=== PATIENT | female | born 1960 | race Caucasian/White ===

== ENCOUNTER → 2016-12-15 | Outpatient (CLI) | payer BC ==
--- NOTE | 2016-12-15 11:37 | US ---
EXAMINATION TYPE: US carotid duplex BILAT DATE OF EXAM: 12/15/2016 9:27 AM COMPARISON: No previous CLINICAL HISTORY: 56-year-old female TIA, one episode of vision loss. TECHNIQUE: Duplex ultrasound evaluation of the carotid vessels. Indirect Doppler criteria was utilize d. FINDINGS: Grayscale images show mild intimal thickening seen at both bifurcations. EXAM MEASUREMENTS: RIGHT: Peak Systolic Velocity (PSV) cm/sec ----- Right CCA: 118.0 ----- Right ICA: 111.0 ----- Right ECA: 135.0 ICA/CCA ratio: 0.9 RIGHT: End Diastole cm/sec ----- Right CCA: 35.3 ----- Right ICA: 33.4 ----- Right ECA: 34.7 LEFT: Peak Systolic Velocity (PSV) cm/sec ----- Left CCA: 120.0 ----- Left ICA: 123.0 ----- Left ECA: 141.0 ICA/CCA ratio: 1.0 LEFT: End Diastole cm/sec ----- Left CCA: 32.1 ----- Left ICA: 47.4 ----- Left ECA: 35.0 VERTEBRALS (direction of flow): Right Vertebral: Antegrade Left Vertebral: Antegrade IMPRESSION: No hemodynamically significant stenosis appreciated in either internal carotid artery. Criteria for Assigning % of Stenosis / Diameter reduction (Estimation based on the indirect measurements of the internal carotid artery velocities (ICA PSV). 1. Normal (no stenosis)=ICA PSV < 125 cm/s: ratio < 2.0: ICA EDV<40 cm/s. 2. Less than 50% stenosis=ICA PSV < 125 cm/s: ratio < 2.0: ICA EDV<40 cm/s. 3. 50 to 69% stenosis=ICA PSV of 125 to 230 cm/s: ration 2.0 ? 4.0: ICA EDV 40-100 cm/s. 4. Greater than 70% stenosis to near occlusion= ICA PSV > 230 cm/s: ratio > 4.0: ICA EDV > 100 cm/s. 5. Near occlusion= ICA PSV velocities may be low or undetectable: variable ratio and ICA EDV. 6. Total occlusion=unable to detect flow.
== END | disposition home or self-care (01) ==
LOC: RADUSWWP 08:50
PROVIDERS: ATTEND Internal Medicine
DX: G45.9 Transient cerebral ischemic attack, unspecified (principal)
CPT/HCPCS: 93880

== ENCOUNTER → 2017-11-14 | Outpatient (CLI) | payer BC ==
--- NOTE | 2017-11-15 10:12 | MM ---
Reason for exam: screening (asymptomatic). Last mammogram was performed 2 years and 9 months ago. History: Family history of premenopausal breast cancer in paternal aunt at age 50. Physical Findings: A clinical breast exam by your physician is recommended on an annual basis and results should be correlated with mammographic findings. MG 3D Screening Mammo W/Cad Bilateral CC and MLO view(s) were taken. Prior study comparison: February 25, 2015, bilateral MG screening mammo w CAD. October 29, 2009, bilateral diagnostic digital mammog. The breast tissue is extremely dense which could obscure a lesion on mammography. Finding: There are typically benign round calcifications in both breasts. There is no discrete abnormality. ASSESSMENT: Benign, BI-RAD 2 RECOMMENDATION: Routine screening mammogram of both breasts in 1 year.
== END | disposition home or self-care (01) ==
LOC: RADMAMWWP 15:18
PROVIDERS: ATTEND Obstetrics & Gynecology
DX: Z12.31 Encounter for screening mammogram for malignant neoplasm of breast (principal)
CPT/HCPCS: 77063; G0202

== ENCOUNTER → 2017-11-23 | Outpatient (CLI) | payer BC ==
--- NOTE | 2017-11-23 09:41 | US ---
EXAMINATION TYPE: US duplex aorta DATE OF EXAM: 11/23/2017 COMPARISON: CT 2012 CLINICAL HISTORY: Z82.41 family hx sudden cardiac . Family history of sudden cardiac EXAM MEASUREMENTS: Abdominal Aorta: Proximal: 1.8 x 1.8cm Mid: 1.5 x 1.6cm Distal: 1.3 x 1.4cm Right Iliac: 0.7 x 0.8cm Left Iliac: 0.9 x 0.9cm Abdominal aorta and proximal iliac arteries appear wnl, no AAA seen at this time. IMPRESSION: 1. Screening ultrasound negative for abdominal aortic aneurysm.
== END ==
LOC: RADUSMAIN 07:49
PROVIDERS: ATTEND Family Medicine
DX: Z13.6 Encounter for screening for cardiovascular disorders (principal); Z82.49 Family history of ischemic heart disease and other diseases of the circulatory system
CPT/HCPCS: 93979

== ENCOUNTER → 2018-05-28 | Outpatient (CLI) | payer BC ==
--- NOTE | 2018-05-28 08:34 | US ---
EXAMINATION TYPE: US transvaginal DATE OF EXAM: 05/28/2018 COMPARISON: 02/25/2015 CLINICAL HISTORY: 57-year-old female R10.2 Pelvic Pain. Pt states pelvic pain, more on the right for many years, LMP: January TECHNIQUE: Transvaginal (TV). Date of LMP: January FINDINGS: EXAM MEASUREMENTS: Uterus: 8.6 x 5.8 x 6.8 cm Endometrial Stripe: 0.6 cm Right Ovary: 2.3 x 1.9 x 1.2 cm Left Ovary: 2.3 x 1.5 x 1.4 cm 1. Uterus: Retroverted Heterogeneous with multiple (up to 3) fibroids, largest= 5.3 x 5.3 x 5.2 cm. The largest fibroid is in the mid uterine fundus and obscures the fundal endometrium. 2. Endometrium: The visualized stripe along the body and lower uterine segment appears normal. 3. Right Ovary: wnl with follicular change 4. Left Ovary: wnl with follicular change 5. Bilateral Adnexa: wnl 6. Posterior cul-de-sac: wnl IMPRESSION: Retroverted, fibroid uterus, largest fibroid along the fundus obscuring the fundal endometrium and me asuring 5.3 cm. Largest fibroid in 2014 measured 5 cm. The endometrial stripe along the lower uterine segment and body measures 6 mm, within normal limits.
== END | disposition home or self-care (01) ==
LOC: RADUSWWP 06:54
PROVIDERS: ATTEND Obstetrics & Gynecology
DX: N85.4 Malposition of uterus (principal); D25.9 Leiomyoma of uterus, unspecified; D26.1 Other benign neoplasm of corpus uteri
CPT/HCPCS: 76830

== ENCOUNTER 2018-08-17 09:01 | Day surgery (SDC) | payer BC ==
[2018-08-16 08:41] VITALS: BMI 19.0
[2018-08-17 09:52] VITALS: RESP 16; TEMP 98.4
[2018-08-17] MEDS ORDERED: LIDOCAINE 1% 20 ML VIAL (10MG/ML) FOR IV START INTRADERMA ONE (09:54)
[2018-08-17] MEDS: LACTATED RINGERS 1,000 ML IV SCH ×2 (09:54→10:11)
[2018-08-17] MEDS ORDERED: PROPOFOL 10 MG/ML 20 ML VIAL IV ONE (10:12)
[2018-08-17] MEDS ORDERED: LIDOCAINE 1% INJ 10MG/ML (20 ML MDV) ONE (10:12)
--- NOTE | 2018-08-17 10:28 | P.PCN ---
Date of Procedure: 08/17/18 Procedure(s) Performed: BRIEF HISTORY: Patient is a 58-year-old pleasant female, scheduled for an elective colonoscopy as a part of screening for colorectal neoplasia. PROCEDURE PERFORMED: Colonoscopy. PREOPERATIVE DIAGNOSIS: Screening for colon cancer. IV sedation per Anesthesia. PROCEDURE: After informed consent was obtained, the patient, was brought into the endoscopy unit. IV sedation was administered by Anesthesia under continuous monitoring. Digital rectal examination was normal. Initially the Olympus CF- 160 flexible video colonoscope was then inserted in the rectum, gradually advanced into the cecum without any difficulty. Careful examination was performed as the scope was gradually being withdrawn. Ileocecal valve and the appendiceal orifice were visualized and appeared normal. Prep was excellent. Mucosa of the cecum, ascending colon, transverse colon, descending colon, sigmoid colon, and rectum appeared normal. Retroflexion was performed in the rectum and no lesions were seen. The patient tolerated the procedure well. IMPRESSION: Normal-appearing colon from rectum to cecum with no evidence of colorectal neoplasia. RECOMMENDATIONS: Findings of this examination were discussed with the patient as well as a family. She was advised to have a repeat screen colonoscopy..
[2018-08-17 10:51] VITALS: BP 117/78; PULSE 66
== END 2018-08-17 11:32 | disposition home or self-care (01) ==
LOC: ORWHC2ENDO 09:01
PROVIDERS: ATTEND Internal Medicine Gastroenterology
DX: Z12.11 Encounter for screening for malignant neoplasm of colon (principal); I10 Essential (primary) hypertension; Z88.0 Allergy status to penicillin; Z79.82 Long term (current) use of aspirin; Z79.899 Other long term (current) drug therapy
CPT/HCPCS: 81025; 45378; J2001; J2704

== ENCOUNTER → 2018-10-25 | Outpatient (CLI) | payer BC ==
--- NOTE | 2018-10-25 10:50 | US ---
EXAMINATION TYPE: US duplex aorta DATE OF EXAM: 10/25/2018 COMPARISON: Doppler duplex ultrasound November 23, 2017 CLINICAL HISTORY: R10.31 RT LOWER QUADRANT PAIN. Pt concerns and jesusita with marker on rt groin area , scanned area bowel loops seen. EXAM MEASUREMENTS: Abdominal Aorta: Proximal: 1.8x1.6 cm Mid: 1.2x1.1 cm Distal: 0.9x0.7 cm CHERIE: 0.7x0.7 cm BRENDAN: 0.6x 0.7 cm Last few images scanning of right groin or pelvis show portions of bowel and bladder without suspicio us mass or fluid collection. IMPRESSION: No ultrasound evidence for AAA. No significant change from prior.
== END | disposition home or self-care (01) ==
LOC: RADUSWWP 06:48
PROVIDERS: ATTEND Physician Assistant
DX: R10.31 Right lower quadrant pain (principal); Z13.6 Encounter for screening for cardiovascular disorders
CPT/HCPCS: 93979

== ENCOUNTER → 2019-03-14 | Outpatient (CLI) | payer BC ==
--- NOTE | 2019-03-14 16:27 | US ---
EXAMINATION TYPE: US venous doppler duplex LE RT DATE OF EXAM: 03/14/2019 4:18 PM COMPARISON: none CLINICAL HISTORY: M79.604 Pain in Right Leg. Right calf pressure x 2 days SIDE PERFORMED: Right TECHNIQUE: The lower extremity deep venous system is examined utilizing real time linear array sonog mann with graded compression, doppler sonography and color-flow sonography. VESSELS IMAGED: Common Femoral Vein Deep Femoral Vein Greater Saphenous Vein * Femoral Vein Popliteal Vein Small Saphenous Vein * Proximal Calf Veins (* superficial vessels) Grayscale, color doppler, spectral doppler imaging performed of the deep veins of the right lower ext remity. There is normal flow, compressibility, vascular waveforms. Right Leg: Negative for DVT IMPRESSION: No sonographic evidence of deep venous thrombosis within the right lower extremity.
== END | disposition home or self-care (01) ==
LOC: RADUSWWP 15:54
PROVIDERS: ATTEND Internal Medicine
DX: M79.604 Pain in right leg (principal)

== ENCOUNTER 2020-01-03 11:06 | Observation (INO) | payer BC ==
[2020-01-03 12:52] LABS: ALT 30 U/L (4-34); AST 33 U/L (14-36); African American GFR (CKD) >90 (>60 ml/min/1.73 sqM); Albumin 4.9 g/dL (3.5-5.0); Alkaline Phosphatase 88 U/L (38-126); Amylase 103 U/L (30-110); Anion Gap 9 mmol/L; Blood Urea Nitrogen 11 mg/dL (7-17); Calcium 9.9 mg/dL (8.4-10.2); Carbon Dioxide 28 mmol/L (22-30); Chloride 97 mmol/L (98-107); Creatine Kinase 47 U/L (30-135); Glucose 118 mg/dL (74-99); Non-African American GFR(CKD) >90 (>60 ml/min/1.73 sqM); Potassium 4.2 mmol/L (3.5-5.1); Sodium 134 mmol/L (137-145); Total Bilirubin 0.8 mg/dL (0.2-1.3)
[2020-01-03 12:58] LABS: Appearance,Urine Clear (Clear); Bilirubin,Urine Negative (Negative); Color,Urine Colorless; Glucose,Urine (UA) Negative (Negative); Ketones,Urine Negative (Negative); Protein,Urine Negative (Negative); Specific Gravity,Urine 1.002 (1.001-1.035)
[2020-01-03 12:59] LABS: Blood,Urine Trace (Negative); Leukocyte Esterase,Urine Negative (Negative); Nitrite,Urine Negative (Negative); RBC,Urine <1 /hpf (0-5); Urobilinogen,Urine <2.0 mg/dL (<2.0); WBC,Urine <1 /hpf (0-5)
--- NOTE | 2020-01-03 13:00 | CT ---
EXAMINATION TYPE: CT angio thor/abd pel aorta DATE OF EXAM: 01/03/2020 COMPARISON: 09/19/2013 HISTORY: Chest/Abd pain CT DLP: 800.7 mGycm. Automated Exposure Control for Dose Reduction was Utilized. CONTRAST: CT scan of the thorax, abdomen and pelvis is performed without and with IV Contrast, patient injected with 100 mL of Isovue 370. FINDINGS: LUNGS: The lungs are grossly clear, there is no concerning parenchymal mass or nodule identified. T here is no pleural effusion or pneumothorax seen. The tracheobronchial tree is patent. Subsegmental linear changes most typical of atelectasis. MEDIASTINUM: There are no greater than 1 cm hilar or mediastinal lymph nodes. No pericardial effusi on is seen. Coronary artery calcification noted. No evidence of aortic aneurysm. Maximal dimension of the ascending aorta 3.1 cm. Descending thoracic aorta of normal caliber. Exam limited by artifact. A therosclerotic change of the abdominal aorta with no evidence of aneurysm. OTHER: No additional significant abnormality is seen. LIVER/GB: No significant abnormality is appreciated. PANCREAS: Mild prominence of the junction of the body and tail the pancreas relative to the prior exa m. SPLEEN: No significant abnormality is seen. ADRENALS: Stable mild thickening of the left adrenal gland. KIDNEYS: No significant abnormality is seen. BOWEL: Bowel gas pattern nonspecific appendix not seen with certainty.. LYMPH NODES: No greater than 1cm abdominal or pelvic lymph nodes are appreciated. OSSEOUS STRUCTURES: Mild hypertrophic and degenerative change of the spine.. OTHER: Uterus somewhat prominent in size. Aorta of normal caliber. IMPRESSION: 1. Mild coronary artery atherosclerotic changes. 2. Uterus is slightly bulky and there is a trace amount fluid in the pelvis correlate with pelvic ult rasound as clinically warranted. 3. Mild prominence the junction of the pancreatic tail body relative to the prior exam. This region i s limited in assessment due to the phase of imaging for CTA. Recommend short-term follow-up MRI of th e pancreas.
[2020-01-03 13:02] LABS: Basophils % (A) 0 %; Eosinophils % (A) 1 %; HCT 42.5 % (34.0-46.0); HGB 14.9 gm/dL (11.4-16.0); Lymphocytes # (A) 1.2 k/uL (1.0-4.8); Lymphocytes % (A) 16 %; MCH 31.9 pg (25.0-35.0); MCV 91.1 fL (80.0-100.0); Mean Platelet Volume 7.7; Monocytes # (A) 0.2 k/uL (0-1.0); Monocytes % (A) 3 %; Neutrophils # (A) 5.8 k/uL (1.3-7.7); Neutrophils % (A) 78 %; Platelet Count 211 k/uL (150-450); RBC 4.67 m/uL (3.80-5.40); RDW 11.6 % (11.5-15.5); WBC 7.4 k/uL (3.8-10.6)
--- NOTE | 2020-01-03 13:49 | ED ---
Abdominal Pain HPI - General Chief Complaint: Abdominal Pain Stated Complaint: abd pain/High BP Time Seen by Provider: 01/03/20 11:33 Source: patient Mode of arrival: ambulatory Limitations: no limitations - History of Present Illness Initial Comments: 59-year-old female with history of hypertension presenting today for chief complaint of palpitations and other complaints. Patient states that Monday she felt like her heart was racing she states it felt like it was beating fast and hard, she states this was not continuous is more on and off. she states it raced for about 8 minutes on Monday night and then went away. Patient states she has had chest pain that is becoming more frequent in nature, described as a pressure with occasional sharpness. Patient is poor at describing the pain. There for the past few days she states it seems to radiate to the back and down for the lower quadrant the abdomen. Patient has experienced this before and has US to r/o AAA as well as pelvic US in the past. Patient denied any known AAA history, marfans or uncontrolled HTN. Patient has had previous catheterization over 4 years ago with no stent placement. Patient states she doesnt currently have CP or SOB. But states she has the abdominal pain. Patient has no history of fevers, urinary symptoms, bloody stools, vomiting, jaw pain. Patient appears well on arrival no signs of acute distress. - Related Data Home Medications Medication Instructions Recorded Confirmed Aspirin 325 mg PO DIRECTED 08/16/18 08/16/18 Spironolactone [Aldactone] 25 mg PO Q48H 08/16/18 08/16/18 Allergies Allergy/AdvReac Type Severity Reaction Status Date / Time nitroglycerin Allergy Rapid Verified 08/16/18 08:32 Heart Rate Penicillins Allergy Unknown Verified 08/16/18 08:32 Childhood sulfamethoxazole Allergy Rash/Hives Verified 01/03/20 11:20 [From Bactrim] trimethoprim [From Bactrim] Allergy Rash/Hives Verified 01/03/20 11:20 Review of Systems ROS Statement: Those systems with pertinent positive or pertinent negative responses have been documented in the HPI. ROS Other: All systems not noted in ROS Statement are negative. Past Medical History Past Medical History: Hypertension, Skin Disorder Additional Past Medical History / Comment(s): hx migraines, occ heart murmer, eczema, slight rash on hands, "low white count" History of Any Multi-Drug Resistant Organisms: None Reported Past Surgical History: Heart Catheterization Past Anesthesia/Blood Transfusion Reactions: No Reported Reaction Additional Past Anesthesia/Blood Transfusion Reaction / Comment(s): states no blood transfusion Past Psychological History: No Psychological Hx Reported Smoking Status: Former smoker Past Alcohol Use History: None Reported Past Drug Use History: None Reported - Past Family History Brother(s) Family Medical History: CVA/TIA Mother Additional Family Medical History / Comment(s): Granmother- Ovarian cancer Father Additional Family Medical History / Comment(s): heart disease- no stents, no CABG. Prostate General Exam - General Exam Comments Initial Comments: General: The patient is awake and alert, in no distress Eye: +3 mm pupils are equal, round and reactive to light, extra-ocular movements are intact. No nystagmus. There is normal conjunctiva bilaterally. No signs of icterus. Ears, nose, mouth and throat: There are moist mucous membranes and no oral lesions. Neck: The neck is supple, there is no tenderness or JVD. Cardiovascular: There is a regular rate and rhythm. No murmur, rub or gallop is appreciated. Respiratory: Lungs are clear to auscultation, respirations are non-labored, breath sounds are equal. No wheezes, stridor, rales, or rhonchi. Gastrointestinal: Soft, non-distended, non-tender abdomen without masses or organomegaly noted. There is no rebound or guarding present. No pulsatile masses. Musculoskeletal: Normal ROM, no tenderness. Strength 5/5. Sensation intact. Radial and DP pulses equal bilaterally 2+. No LE edema. Neurological: A&O x 3. CN II-XII intact, There are no obvious motor or sensory deficits. Coordination appears grossly intact. Speech is normal. Skin: Skin is warm and dry and no rashes or lesions are noted. Psychiatric: Cooperative, appropriate mood & affect, normal judgment. Limitations: no limitations Course Vital Signs 01/03/20 01/03/20 11:16 13:58 Temperature 98.5 F 98.1 F Pulse Rate 69 65 Respiratory 18 18 Rate Blood Pressure 178/72 159/74 O2 Sat by Pulse 100 98 Oximetry Medical Decision Making - Medical Decision Making Ventricular rate 65 bpm, SC interval 154 ms, QRS duration 90 ms, QT/QTC 400/416 ms. This is normal sinus with possible left atrial enlargement. No ST elevation or depression is noted. 59-year-old female presents today for chief complaint of abdominal pain chest pain back pain. CTA negative for abnormalities of the aorta which is patient's primary concern. There was noted findings of the pancreas which were discussed with patient as well as a bulky uterus which she states she is following [employer] and was told she had fibroids she states that she has 6 month follow-up coming up. Patient is coming of [facility] RF of family history, CTA findings consistent with CAD, patient HTN history and increasing of frequency of symptoms/chest pain patient will be admitted for CP r/o and cardiology evaluation. Patient is agreeable to observation. Dr. Devries spoke with admitting provider who is agreeable to care plan and admission at this time. Recommended GI f/u after discharge for pancreas findings within the next 1-2 weeks and well as OBGYN f/u for bulky uterus-patient is aware of the finding and importance of close f/u as cancer cannot be excluded as origin. - Lab Data Result diagrams: 01/03/20 11:32 01/03/20 11:32 Lab Results 01/03/20 01/03/20 01/03/20 Range/Units 11:32 11:32 11:32 WBC 7.4 (3.8-10.6) k/uL RBC 4.67 (3.80-5.40) m/uL Hgb 14.9 (11.4-16.0) gm/dL Hct 42.5 (34.0-46.0) % MCV 91.1 (80.0-100.0) fL MCH 31.9 (25.0-35.0) pg MCHC 35.0 (31.0-37.0) g/dL RDW 11.6 (11.5-15.5) % Plt Count 211 (150-450) k/uL Neutrophils % 78 % Lymphocytes % 16 % Monocytes % 3 % Eosinophils % 1 % Basophils % 0 % Neutrophils # 5.8 (1.3-7.7) k/uL Lymphocytes # 1.2 (1.0-4.8) k/uL Monocytes # 0.2 (0-1.0) k/uL Eosinophils # 0.0 (0-0.7) k/uL Basophils # 0.0 (0-0.2) k/uL Sodium 134 L (137-145) mmol/L Potassium 4.2 (3.5-5.1) mmol/L Chloride 97 L (98-107) mmol/L Carbon Dioxide 28 (22-30) mmol/L Anion Gap 9 mmol/L BUN 11 (7-17) mg/dL Creatinine 0.64 (0.52-1.04) mg/dL Est GFR (CKD-EPI)AfAm >90 (>60 ml/min/1.73 sqM) Est GFR (CKD-EPI)NonAf >90 (>60 ml/min/1.73 sqM) Glucose 118 H (74-99) mg/dL Plasma Lactic Acid René 0.8 (0.7-2.0) mmol/L Calcium 9.9 (8.4-10.2) mg/dL Total Bilirubin 0.8 (0.2-1.3) mg/dL AST 33 (14-36) U/L ALT 30 (4-34) U/L Alkaline Phosphatase 88 (38-126) U/L Creatine Kinase 47 (30-135) U/L Troponin I (0.000-0.034) ng/mL Total Protein 8.0 (6.3-8.2) g/dL Albumin 4.9 (3.5-5.0) g/dL Amylase 103 (30-110) U/L Lipase 206 (23-300) U/L Urine Color Urine Appearance (Clear) Urine pH (5.0-8.0) Ur Specific Mcallen (1.001-1.035) Urine Protein (Negative) Urine Glucose (UA) (Negative) Urine Ketones (Negative) Urine Blood (Negative) Urine Nitrite (Negative) Urine Bilirubin (Negative) Urine Urobilinogen (<2.0) mg/dL Ur Leukocyte Esterase (Negative) Urine RBC (0-5) /hpf Urine WBC (0-5) /hpf 01/03/20 01/03/20 Range/Units 11:32 12:43 WBC (3.8-10.6) k/uL RBC (3.80-5.40) m/uL Hgb (11.4-16.0) gm/dL Hct (34.0-46.0) % MCV (80.0-100.0) fL MCH (25.0-35.0) pg MCHC (31.0-37.0) g/dL RDW (11.5-15.5) % Plt Count (150-450) k/uL Neutrophils % % Lymphocytes % % Monocytes % % Eosinophils % % Basophils % % Neutrophils # (1.3-7.7) k/uL Lymphocytes # (1.0-4.8) k/uL Monocytes # (0-1.0) k/uL Eosinophils # (0-0.7) k/uL Basophils # (0-0.2) k/uL Sodium (137-145) mmol/L Potassium (3.5-5.1) mmol/L Chloride (98-107) mmol/L Carbon Dioxide (22-30) mmol/L Anion Gap mmol/L BUN (7-17) mg/dL Creatinine (0.52-1.04) mg/dL Est GFR (CKD-EPI)AfAm (>60 ml/min/1.73 sqM) Est GFR (CKD-EPI)NonAf (>60 ml/min/1.73 sqM) Glucose (74-99) mg/dL Plasma Lactic Acid René (0.7-2.0) mmol/L Calcium (8.4-10.2) mg/dL Total Bilirubin (0.2-1.3) mg/dL AST (14-36) U/L ALT (4-34) U/L Alkaline Phosphatase (38-126) U/L Creatine Kinase (30-135) U/L Troponin I <0.012 (0.000-0.034) ng/mL Total Protein (6.3-8.2) g/dL Albumin (3.5-5.0) g/dL Amylase (30-110) U/L Lipase (23-300) U/L Urine Color Colorless Urine Appearance Clear (Clear) Urine pH 7.0 (5.0-8.0) Ur Specific Mcallen 1.002 (1.001-1.035) Urine Protein Negative (Negative) Urine Glucose (UA) Negative (Negative) Urine Ketones Negative (Negative) Urine Blood Trace H (Negative) Urine Nitrite Negative (Negative) Urine Bilirubin Negative (Negative) Urine Urobilinogen <2.0 (<2.0) mg/dL Ur Leukocyte Esterase Negative (Negative) Urine RBC <1 (0-5) /hpf Urine WBC <1 (0-5) /hpf Disposition Clinical Impression: Chest pain, Pancreatic abnormality, Bulky or enlarged uterus, Abdominal pain Disposition: ADMITTED IP TO THIS [facility] Condition: Stable Is patient prescribed a controlled substance at d/c from ED?: No Time of Disposition: 14:04 Decision to Admit Reason: Admit from EC Decision Date: 01/03/20 Decision Time: 14:04
[2020-01-03] MEDS ORDERED: ASPIRIN 81 MG PO STA (13:54)
[2020-01-03] MEDS ORDERED: NALOXONE 0.4 MG/ML 1 ML VIAL IV PRN (14:04)
[2020-01-03] MEDS ORDERED: SODIUM CHLORIDE 0.9% 1,000 ML IV SCH (14:15)
[2020-01-03] MEDS ORDERED: ASPIRIN 325 MG TAB PO SCH (15:15)
[2020-01-03] MEDS ORDERED: ACETAMINOPHEN TAB 325 MG TAB PO PRN (16:09)
[2020-01-03] MEDS ORDERED: CALCIUM CARBONATE 500 MG CHEWABLE PO PRN (16:09)
[2020-01-03] MEDS ORDERED: ONDANSETRON 4 MG/2 ML VIAL IVP PRN (16:09)
[2020-01-03] MEDS ORDERED: DOCUSATE 100 MG CAP PO PRN (16:09)
[2020-01-03] MEDS ORDERED: MELATONIN 5 MG TABLET PO PRN (16:09)
[2020-01-03] MEDS ORDERED: ALBUTEROL NEBULIZED 2.5 MG/3 ML INHALATION PRN (16:09)
--- NOTE | 2020-01-03 16:09 | P.HPIM ---
History of Present Illness H&P Date: 01/03/20 Chief Complaint: palpitations Patient is a 59-year-old female with a past medical history of prior palpitations, high blood pressure, and high cholesterol not currently taking any medications who presented to the emergency department with vague complaints including palpitations. Urgency department she underwent an extensive evaluation. On arrival she was slightly hypertensive with a still systolic blood pressure 178 which fell to the 150s without any specific intervention. Initial laboratory analysis was unremarkable. Initial EKG is reviewed by myself revealed normal sinus rhythm without any significant ST-T wave changes or access deviation. She underwent a CT of the aorta which did not demonstrate any signs of aneurysm or dissection. It did show possible enlargement of the pancreatic tail. The emergency department placed her in observation status for possible anginal equilivant. Patient seen and examined at bedside with her present. She has vague complaints that seem to be crossing over a long period of time. Monday night palpitations overnight, these are typical for her but the lasted 15 minutes instead of 8 minutes, but also said that they lasted all night. Feeling fatigued X 2 days, appetite lost today. Achy pain throughout chest and abdomen- can not localize to one region. Her pain waxes and waynes in intensity. Worsen in the morning and when laying flat at night. Defecation improves the discomfort normally but didn't today. Unsure if it changes with eating. No shortness of breath with discomfort, but shortness of breath intermittently and randomly over the past few months. Intermittent nausea not related to eating. left face and head numbness with episodes lasting 20 seconds at night but not associated with her pain. No coughing, no runny nose or stuffy nose. No heart burn or acid reflux. Has stopped taking some supplements recently. She is currently taking the following supplements: B6,B12, Folate, Vit D, Boswellia, Serrapeptase, catalase. Intermittent dizziness and chest heaviness when walking over the last 1.5 months. Used to be able to ride bike 10 miles without problems Has had back pain intermittently for 1.5 years. Can't take aldactone daily it doesn't make her feel right. Increased stress at home. Heart cath 2003 for palpitations, also had a heat monitor. Follows with Dr. Aguliera every 6 months for cholesterol, does not take her crestor. No weight loss or gain. No night sweats Review of Systems Pertinent positives and negatives as discussed in HPI, a complete review of systems was performed and all other systems are negative. Past Medical History Past Medical History: Hypertension, Skin Disorder Additional Past Medical History / Comment(s): hx migraines, occ heart murmer, eczema, slight rash on hands, "low white count" History of Any Multi-Drug Resistant Organisms: None Reported Past Surgical History: Heart Catheterization Past Anesthesia/Blood Transfusion Reactions: No Reported Reaction Additional Past Anesthesia/Blood Transfusion Reaction / Comment(s): states no blood transfusion Past Psychological History: No Psychological Hx Reported Smoking Status: Former smoker Past Alcohol Use History: None Reported Past Drug Use History: None Reported Additional History: self employees, 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 Brother CVA at age 57 Mother Additional Family Medical History / Comment(s): Granmother- Ovarian cancer Father Additional Family Medical History / Comment(s): heart disease- no stents, no CABG. Prostate Medications and Allergies Home Medications Medication Instructions Recorded Confirmed Type Aspirin 325 mg PO DIRECTED 08/16/18 08/16/18 History Spironolactone [Aldactone] 25 mg PO Q48H 08/16/18 08/16/18 History Allergies Allergy/AdvReac Type Severity Reaction Status Date / Time nitroglycerin Allergy Rapid Verified 08/16/18 08:32 Heart Rate Penicillins Allergy Unknown Verified 08/16/18 08:32 Childhood sulfamethoxazole Allergy Rash/Hives Verified 01/03/20 11:20 [From Bactrim] trimethoprim [From Bactrim] Allergy Rash/Hives Verified 01/03/20 11:20 Physical Exam Osteopathic Statement: *. No significant issues noted on an osteopathic structural exam other than those noted in the History and Physical/Consult. Vitals: Vital Signs Temp Pulse Resp BP Pulse Ox 01/03/20 13:58 98.1 F 65 18 159/74 98 01/03/20 11:16 98.5 F 69 18 178/72 100 Intake and Output 01/02/20 01/03/20 01/03/20 22:59 06:59 14:59 Other: Weight 50.802 kg General: non toxic, no distress, appears at stated age, normal weight Derm: no unusual rashes/lesions no unusual ecchymoses, warm, dry Head: atraumatic, normocephalic, symmetric Eyes: EOMI, no lid lag, anicteric sclera, pupils equal round reactive to light ENT: Nose and ears atraumatic, no thrush, no pharyngeal erythema Neck: No thyromegaly, no cervical lymphadenopathy, trachea midline, supple Mouth: no lip lesion, mucus membranes moist Cardiovascular: S1S2 reg, no murmur, positive posterior tibial pulse bilateral, no edema, capillary refill less than 2 seconds Lungs: CTA bilateral, no rhonchi, no rales , no accessory muscle use Abdominal: soft, + tender to palpation LUQ, no guarding, no appreciable organomegaly, normal bowel sounds Ext: no gross muscle atrophy, muscle strength 5 out of 5 in all 4 extremities grossly, no contractures, Neuro: CN II-XI grossly intact, light touch intact all 4 extremities, finger to nose within normal limits, Psych: Alert, oriented, appropriate affect Results CBC & Chem 7: 01/03/20 11:32 01/03/20 11:32 Labs: Abnormal Lab Results - Last 24 Hours (Table) 01/03/20 01/03/20 Range/Units 11:32 12:43 Sodium 134 L (137-145) mmol/L Chloride 97 L (98-107) mmol/L Glucose 118 H (74-99) mg/dL Urine Blood Trace H (Negative) Chest x-ray: report reviewed CT scan - abdomen: report reviewed CT scan - pelvis: report reviewed Thrombosis Risk Factor Assmnt - DVT/VTE Prophylaxis DVT/VTE Prophylaxis: Low risk, early ambulation encouraged Assessment and Plan Assessment: Palpitations with possible exerction dyspnea - tele - echo - consult cardio - ASA - repeat troponin in 6 hours HTN urgency - resume aldactone - follow BP, already improving Dyslipidemia - follows with Dr. Aguilera - not taking any prescriptions currently Pancreatic tail enlargement, possible - had a long discussion with patient, she will follow up as out patient with Dr. Galeana, to obtain prior auth for MRI of the pancreas. - aware that may be mass - message left with Dr. Galeana office for need for MRI - check amylase The patient is placed in observation with an anticipated less than 2 midnight stay for evaluation of palpitations. Surrogate decision-maker: DVT prophylaxis: SCDs Discussed with: Patient, nursing, Anticipated discharge date: in AM Anticipated discharge place: home A total of 70 minutes was spent on the care of this complex patient more than 50% of the time was spent in counseling and care coordination.
[2020-01-03 16:23] LABS: Amylase 107 U/L (30-110)
[2020-01-04 06:08] LABS: Cholesterol 236 mg/dL (<200); HDL Cholesterol 61 mg/dL (40-60); LDL Cholesterol,Calculated 159 mg/dL (0-99); Triglycerides 79 mg/dL (<150)
[2020-01-04] MEDS ORDERED: SPIRONOLACTONE 25 MG TAB PO SCH (09:00)
[2020-01-04] MEDS ORDERED: ASPIRIN 325 MG TAB PO SCH (09:00)
[2020-01-04 10:38] VITALS: RESP 14
--- NOTE | 2020-01-04 11:44 | CONS ---
CONSULTATION CHIEF COMPLAINT: Chest pain. Eloy is a 59-year-old lady with history of dyslipidemia who presented to hospital complaining of chest pain. Her chest discomfort is in the abdomen and sort of radiates into her chest. A CT scan of the chest was negative for aortic aneurysm and dissection, but she had calcified coronaries. She has history of dyslipidemia and had been evaluated by mexican food cook, Dr. Aguilera, in the past and sees him regularly. She has dyslipidemia, but does not take her lipid-lowering agents regularly. Since being admitted, she is doing well. Has not had any episodes of chest pain. Her EKG reveals sinus rhythm without significant ST-T wave changes. Three sets of cardiac enzymes have been negative. She had an echocardiogram and I am going to review the results once they are available. She is stable for discharge and she can undergo an outpatient stress test when she is ready for it. The patient does not want to do anything in the next month or two. PAST MEDICAL HISTORY: Significant for dyslipidemia. CURRENT MEDICATIONS: Current medications include aspirin, Crestor, Aldactone. ALLERGIES: Allergic to PENICILLIN, SULFA, and BACTRIM. FAMILY HISTORY: Negative for premature coronary artery disease. SOCIAL HISTORY: Negative for smoking, EtOH abuse or drug abuse. REVIEW OF SYSTEMS: HEENT is unremarkable. CARDIAC: As described above. RESPIRATORY: Negative. GI: Negative. GENITOURINARY: Negative. ALLERGY/IMMUNOLOGY: Negative. SKIN: Negative. MUSCULOSKELETAL: Negative. ENDOCRINE: Negative. DERM: Negative. CONSTITUTIONAL: Negative. ONCOLOGICAL: Negative. CONSTRUCTION SUPERVISOR/CARPENTER: Negative. Rest of the system review is not relevant. PHYSICAL EXAMINATION: On exam, comfortable at rest. Vital signs are stable. There is no jugular venous distention. Carotid upstroke is normal. There is no bruit. Chest exam reveals good air entry bilaterally. Heart exam reveals first and second heart sounds. No gallop. No murmur. No rub. Abdomen is soft, nontender. Exam of extremities did not reveal any edema. Peripheral pulses are felt. CONSTRUCTION SUPERVISOR/CARPENTER exam did not reveal focal neurological deficits. LABS: Labs show that the 3 sets of troponins are negative. ASSESSMENT: 1. Atypical chest pain. 2. Dyslipidemia. PLAN: I advised the patient to take aspirin and statin regularly. I will obtain a 2D echo and schedule her for a stress test. MMODL / IJN: [id number] /
[2020-01-04 12:00] VITALS: BP 110/70; PULSE 85; TEMP 98.1
--- NOTE | 2020-01-04 14:37 | P.DS ---
Providers Date of admission: 01/03/20 14:01 Expected date of discharge: 01/04/20 Attending physician: Yolanda Rodriguez DO Consults: 01/03/20 14:05 Consult Physician Routine Consulting Provider: Helena Aguilera Consult Reason/Comments: chest pain observation Do you want consulting provider notified?: Yes Primary care physician: [facility] Course: Patient presented to the emergency department with multiple complaints including but not limited to off-and-on palpitation high blood pressure body aches and pains and abdominal complaints. When I talked to her this morning she stated her main reason for coming to the hospital was abdominal discomfort and pain and off-and-on nausea. At the time of admission she had CAT scan of the aorta to rule out dissection was done which was reported as mild coronary artery atherosclerosis, mild prominence of junction of the pancreatic tail and body related to prior exam. MRI of the pancreas which short-term follow-up was recommended. Patient lipase was slightly elevated at the time of presentation but overnight lipase improved and clinical condition also improved. Patient is now tolerating oral diet well without nausea or worsening of her symptoms. She did complain of some symptoms of constipation and she was counseled regarding high fiber diet and plenty of fluids. Patient doesn't want to take medications if possible. She is placed on docusate twice a day which will be continued at discharge. Patient is on Crestor for cholesterol and is not taking it she was counseled to take which was not well taken by her. Patient was also referred to cardiology services for palpitation 2-D echocardiogram was done and report is pending at this time. And patient was seen by Dr. Santamaria who recommended outpati ent follow-up with outpatient stress test. Review patient is doing much better clinically she is stable she'll be discharged home with PCP and cardiology follow-up. Health Concerns: Needs follow-up on pancreas with outpatient MRI. Pertinent Studies: CT angiogram of aorta and 2-D echocardiogram. Procedures: None Patient Condition at Discharge: Good Plan - Discharge Summary Discharge Rx Participant: No New Discharge Prescriptions: New Docusate [Colace] 100 mg PO BID PRN #60 cap PRN Reason: Constipation Continue Spironolactone [Aldactone] 25 mg PO SUTUFR Aspirin 325 mg PO DAILY PRN PRN Reason: Pain Rosuvastatin [Crestor] 10 mg PO DAILY Latanoprost/Pf [Latanoprost 0.005% Eye Drop] 1 drop LEFT EYE HS Discharge Medication List Aspirin 325 mg PO DAILY PRN 08/16/18 [History] Spironolactone [Aldactone] 25 mg PO SUTUFR 08/16/18 [History] Latanoprost/Pf [Latanoprost 0.005% Eye Drop] 1 drop LEFT EYE HS 01/03/20 [History] Rosuvastatin [Crestor] 10 mg PO DAILY 01/03/20 [History] Docusate [Colace] 100 mg PO BID PRN #60 cap 01/04/20 [Rx] Follow up Appointment(s)/Referral(s): Joni Galeana [Primary Care Provider] - 1-2 days Ari Santamaria MD [STAFF PHYSICIAN] - 1 Week Patient Instructions/Handouts: Pancreatitis (DC), High Fiber Diet (DC) Discharge Disposition: HOME SELF-CARE Plan of Treatment: Need to have MRI Pancreas as an out patient basis for f/u on CT-Abdomen findings.
--- NOTE | 2020-01-04 16:46 | ECHOF ---
Referral Reason:Palpitations MEASUREMENTS -------- HEIGHT: 162.6 cm WEIGHT: 50.8 kg BP: 121/67 RVIDd: 3.0 cm (< 3.3) IVSd: 1.0 cm (0.6 - 1.1) LVIDd: 3.0 cm (3.9 - 5.3) LVPWd: 1.0 cm (0.6 - 1.1) IVSs: 1.4 cm LVIDs: 2.0 cm LVPWs: 1.4 cm LA Diam: 2.1 cm (2.7 - 3.8) LAESV Index (A-L): 17.66 ml/m Ao Diam: 2.7 cm (2.0 - 3.7) AV Cusp: 1.4 cm (1.5 - 2.6) MV EXCURSION: 14.078 mm (> 18.000) MV EF SLOPE: 44 mm/s (70 - 150) EPSS: 0.2 cm MV E Rafy: 0.80 m/s MV DecT: 367 ms MV A Rafy: 0.99 m/s MV E/A Ratio: 0.81 RAP: 5.00 mmHg RVSP: 30.43 mmHg FINDINGS -------- Sinus rhythm. This was a technically good study. The left ventricular size is normal. Left ventricular wall thickness is normal. Overall left vent ricular systolic function is normal with, an EF between 60 - 65 %. The right ventricle is normal in size. Normal LA size by volume 22+/-6 ml/m2. The right atrium is normal in size. Interatrial and interventricular septum intact. The aortic valve is trileaflet and appears structurally normal. The mitral valve is normal. Mild tricuspid regurgitation present. Right ventricular systolic pressure is normal at < 35 mmHg. There is no pulmonic regurgitation present. The aortic root size is normal. Normal inferior vena cava with normal inspiratory collapse consistent with estimated right atrial pre ssure of 5 mmHg. There is no pericardial effusion. CONCLUSIONS -------- 1. Sinus rhythm. 2. This was a technically good study. 3. The left ventricular size is normal. 4. Left ventricular wall thickness is normal. 5. Overall left ventricular systolic function is normal with, an EF between 60 - 65 %. 6. The right ventricle is normal in size. 7. Normal LA size by volume 22+/-6 ml/m2. 8. The right atrium is normal in size. 9. Interatrial and interventricular septum intact. 10. The aortic valve is trileaflet and appears structurally normal. 11. The mitral valve is normal. 12. Mild tricuspid regurgitation present. 13. Right ventricular systolic pressure is normal at < 35 mmHg. 14. There is no pulmonic regurgitation present. 15. The aortic root size is normal. 16. Normal inferior vena cava with normal inspiratory collapse consistent with estimated right atrial pressure of 5 mmHg. 17. There is no pericardial effusion. BUSGIRL: Dora Simms RDCS
== END 2020-01-04 14:55 | disposition home or self-care (01) ==
LOC: EC 11:06 → 1SOBS 14:01
PROVIDERS: ADMIT Internal Medicine; ATTEND Internal Medicine
DX: I16.0 Hypertensive urgency (principal); R07.89 Other chest pain; I25.10 Atherosclerotic heart disease of native coronary artery without angina pectoris; I10 Essential (primary) hypertension; E78.5 Hyperlipidemia, unspecified; T46.6X6A Underdosing of antihyperlipidemic and antiarteriosclerotic drugs, initial encounter; K59.00 Constipation, unspecified; R93.3 Abnormal findings on diagnostic imaging of other parts of digestive tract; N85.2 Hypertrophy of uterus; G43.909 Migraine, unspecified, not intractable, without status migrainosus; L30.9 Dermatitis, unspecified; M54.9 Dorsalgia, unspecified; R74.8 Abnormal levels of other serum enzymes; R01.1 Cardiac murmur, unspecified; Z87.891 Personal history of nicotine dependence; Z98.890 Other specified postprocedural states; Z73.3 Stress, not elsewhere classified; Z79.82 Long term (current) use of aspirin; Z79.899 Other long term (current) drug therapy; Z88.0 Allergy status to penicillin; Z88.2 Allergy status to sulfonamides; Z88.8 Allergy status to other drugs, medicaments and biological substances; Z82.49 Family history of ischemic heart disease and other diseases of the circulatory system; Z82.3 Family history of stroke; Z80.41 Family history of malignant neoplasm of ovary
CPT/HCPCS: 93005 ×2; 99285; 36415; 93306; 80061; 80053; 82150; 82550; 83605; 83690; 84484; 85025; 81001; 71275; 74174; G0378 ×2; Q9967

== ENCOUNTER → 2020-01-17 | Outpatient (CLI) | payer BC ==
[2020-01-17 19:23] LABS: African American GFR (CKD) 94.9 (60.0-200.0); Anion Gap 8.9 mmol/L (4.00-12.00); BUN/Creat Ratio 17.5 Ratio (12.00-20.00); Calcium 9.1 mg/dL (8.7-10.3); Carbon Dioxide 26.1 mmol/L (21.6-31.8); Non-African American GFR(CKD) 81.8 (60.0-200.0)
== END | disposition home or self-care (01) ==
LOC: LABWHC1 12:38
PROVIDERS: ATTEND Family Medicine
DX: R30.0 Dysuria (principal)
CPT/HCPCS: 36415; 80048

== ENCOUNTER → 2020-02-06 | Outpatient (CLI) | payer BC ==
--- NOTE | 2020-02-06 10:52 | MR ---
EXAMINATION TYPE: MR abdomen wo/w con DATE OF EXAM: 02/06/2020 COMPARISON: CT aorta January 03, 2020. HISTORY: Pancreatic mass, abnormal CT. CONTRAST: Standard multiplanar, multisequence MRI departmental protocol utilizing 5 ml mL intravenous Gadavist gadolinium contrast. Imaging is performed of the abdomen focusing on the pancreas. FINDINGS: Pancreas: The pancreas is perhaps slightly more bulky distally near the distal body are less prominen t on MRI versus CT. There is no suspicious solid or cystic mass or ductal dilatation. Postcontrast im ages show homogeneous enhancement without suspicious rim enhancement. Other: Patient has virtually no intra-abdominal fat making evaluation suboptimal similar to CT. Lung bases are clear. The liver, gallbladder, spleen, both adrenal glands are normal in size. There is no concerning renal mass or hydronephrosis seen bilaterally. No suspicious bowel dilatation. No abdomina l ascites. No AAA. Visualized osseous structures are intact. IMPRESSION: Some bulkiness of the distal pancreas without suspicious mass or enhancement likely is a normal variant.
== END | disposition home or self-care (01) ==
LOC: RADMRIMAIN 09:29
PROVIDERS: ATTEND Family Medicine
DX: K86.89 Other specified diseases of pancreas (principal)
CPT/HCPCS: 74183; A9585

== ENCOUNTER → 2020-07-02 | Outpatient (CLI) | payer BC ==
--- NOTE | 2020-07-06 13:57 | MM ---
Reason for exam: screening (asymptomatic). Last mammogram was performed 2 years and 8 months ago. History: Patient is postmenopausal. Family history of premenopausal breast cancer in paternal aunt at age 50. Took hormonal contraceptives beginning at age 21. Physical Findings: A clinical breast exam by your physician is recommended on an annual basis and results should be correlated with mammographic findings. MG 3D Screening Mammo W/Cad Bilateral CC and MLO view(s) were taken. Prior study comparison: November 14, 2017, bilateral MG 3d screening mammo w/cad. February 25, 2015, bilateral MG screening mammo w CAD. The breast tissue is extremely dense which could obscure a lesion on mammography. There are benign appearing round dystrophic calcifications bilaterally. There is no discrete abnormality. ASSESSMENT: Benign, BI-RAD 2 RECOMMENDATION: Routine screening mammogram of both breasts in 1 year.
== END | disposition home or self-care (01) ==
LOC: RADMAMWWP 08:45
PROVIDERS: ATTEND Internal Medicine
DX: Z12.31 Encounter for screening mammogram for malignant neoplasm of breast (principal)
CPT/HCPCS: 77063; 77067

== ENCOUNTER → 2020-08-21 | Outpatient (CLI) | payer BC ==
[2020-08-21 12:06] LABS: Basophils % (A) 0 %; Eosinophils # (A) 0.1 k/uL (0-0.7); Eosinophils % (A) 2 %; HCT 42.1 % (34.0-46.0); HGB 14.3 gm/dL (11.4-16.0); Lymphocytes # (A) 1.4 k/uL (1.0-4.8); Lymphocytes % (A) 30 %; MCHC 33.9 g/dL (31.0-37.0); MCV 91.5 fL (80.0-100.0); Mean Platelet Volume 7.1; Monocytes # (A) 0.3 k/uL (0-1.0); Monocytes % (A) 6 %; Neutrophils # (A) 2.8 k/uL (1.3-7.7); Neutrophils % (A) 60 %; Platelet Count 186 k/uL (150-450); RDW 12.1 % (11.5-15.5); WBC 4.6 k/uL (3.8-10.6)
[2020-08-21 20:30] LABS: Cardiolipin Ab IgG Interp NEGATIVE (NEGATIVE); Cardiolipin Ab IgM Interp Positive (NEGATIVE); Cardiolipin IgA Antibody 8.7 U/mL; Cardiolipin IgM Antibody 26.5 U/mL
[2020-08-21 21:26] LABS: INR 0.93 (0.90-1.11); Partial Thromboplastin Time 29.1 sec (24.7-29.9)
== END | disposition home or self-care (01) ==
LOC: LABWHC1 10:37
PROVIDERS: ATTEND Internal Medicine
DX: D68.69 Other thrombophilia (principal); D70.9 Neutropenia, unspecified
CPT/HCPCS: 36415; 82784; 82785; 85025; 85301; 85610; 85613; 85730; 86147

== ENCOUNTER → 2021-12-15 | Outpatient (CLI) | payer BC ==
--- NOTE | 2021-12-16 09:34 | MM ---
Reason for exam: screening (asymptomatic). Last mammogram was performed 1 year and 5 months ago. History: Patient is postmenopausal. Family history of premenopausal breast cancer in paternal aunt at age 50. Took hormonal contraceptives beginning at age 21. Physical Findings: A clinical breast exam by your physician is recommended on an annual basis and results should be correlated with mammographic findings. MG 3D Screening Mammo W/Cad Bilateral CC and MLO view(s) were taken. Prior study comparison: July 02, 2020, bilateral MG 3d screening mammo w/cad. November 14, 2017, bilateral MG 3d screening mammo w/cad. The breast tissue is extremely dense which could obscure a lesion on mammography. Finding: There are developing heterogeneous, grouped/clustered calcifications in the upper quadrant, posterior position of the left breast on MLO view. No significant changes in finding since July 02, 2020 and November 14, 2017. ASSESSMENT: Incomplete: need additional imaging evaluation, BI-RAD 0 RECOMMENDATION: Special view mammogram of the left breast. [facility] will attempt to contact patient to return for supplemental views.
== END | disposition home or self-care (01) ==
LOC: RADMAMWWP 07:21
PROVIDERS: ATTEND Obstetrics & Gynecology
DX: Z12.31 Encounter for screening mammogram for malignant neoplasm of breast (principal); Z78.0 Asymptomatic menopausal state; Z80.3 Family history of malignant neoplasm of breast
CPT/HCPCS: 77063; 77067

== ENCOUNTER → 2021-12-15 | Outpatient (CLI) | payer BC ==
--- NOTE | 2021-12-15 08:03 | US ---
EXAMINATION TYPE: US duplex aorta DATE OF EXAM: 12/15/2021 COMPARISON: NONE CLINICAL HISTORY: Z13.6 Screening Aortic Aneurysm. no family or personal history of AAA, no symptoms EXAM MEASUREMENTS: Abdominal Aorta: Proximal: 1.8 x 1.9cm Mid: 1.2 x 1.3cm Distal: 1.1 x 1.2cm Bifurcation: Rt=1.0cm Lt= 0.7cm IMPRESSION: 1. No Abdominal Aortic Aneurysm on screening ultrasound
== END ==
LOC: RADUSWWP 07:19
PROVIDERS: ATTEND Family Medicine
DX: Z13.6 Encounter for screening for cardiovascular disorders (principal)
CPT/HCPCS: 93979

== ENCOUNTER → 2021-12-31 | Outpatient (CLI) | payer BC ==
--- NOTE | 2021-12-31 13:35 | MM ---
Reason for exam: additional evaluation requested from abnormal screening. Last mammogram was performed 1 month ago. History: Patient is postmenopausal. Family history of premenopausal breast cancer in paternal aunt at age 50. Took hormonal contraceptives beginning at age 21. Physical Findings: Nurse did not find any significant physical abnormalities on exam. MG 3D Work Up W/Cad LT LM with magnification, LM, and XCCL view(s) were taken of the left breast. Prior study comparison: December 15, 2021, bilateral MG 3d screening mammo w/cad. July 02, 2020, bilateral MG 3d screening mammo w/cad. Indeterminate group of microcalcifications upper left breast. These results were verbally communicated with the patient and result sheet given to the patient on 12/31/21. ASSESSMENT: Suspicious, BI-RAD 4 RECOMMENDATION: Stereotactic core biopsy of the left breast. Called Dr. Mojica's office with mammographic findings. Patient want to discuss with Dr. Mojica regarding biopsy before scheduling. PRELIMINARY REPORT CALLED AND FAXED TO DR. MOJICA ON 12/31/21.
== END | disposition home or self-care (01) ==
LOC: RADMAMWWP 10:16
PROVIDERS: ATTEND Obstetrics & Gynecology
DX: R92.8 Other abnormal and inconclusive findings on diagnostic imaging of breast (principal); Z78.0 Asymptomatic menopausal state; Z80.3 Family history of malignant neoplasm of breast
CPT/HCPCS: 77061; 77065

== ENCOUNTER → 2023-04-17 | Outpatient (CLI) | payer BC ==
--- NOTE | 2023-04-17 15:49 | CT ---
EXAMINATION TYPE: CT abdomen pelvis w con DATE OF EXAM: 04/17/2023 COMPARISON: 01/03/2020 HISTORY: RLQ abdominal and groin pain CT DLP: 312.3 mGycm CONTRAST: CT scan of the abdomen and pelvis is performed with Oral Contrast and with IV Contrast, patient injec dg with 100 cc mL of Isovue 300. FINDINGS: LUNG BASES-: No visible nodule. No infiltrate. LIVER/GB: I cannot exclude soft gallstones. The intrahepatic biliary tree appears to be mildly prom inent. Ultrasound correlation recommended. 5 mm probable cyst anterior segment right hepatic lobe. PANCREAS: No inflammation. No distinct mass. SPLEEN: No splenic enlargement. No lesion seen. ADRENALS: No nodule. No thickening. KIDNEYS/BLADDER: No hydronephrosis. No nephrolithiasis. No distinct renal mass. Urinary bladder g rossly unremarkable. BOWEL: Normal appendix. Normal bowel caliber. No inflammation. Moderate fecal stasis noted. GENITAL ORGANS: No gross abnormality. LYMPH NODES: No greater than 1cm abdominal or pelvic lymph nodes are appreciated. AORTA: No significant abnormality. OSSEOUS STRUCTURES: No significant abnormality is seen. OTHER: No significant additional abnormality is seen. IMPRESSION: 1. I cannot exclude soft gallstones. The intrahepatic biliary tree appears to be mildly prominent. Ul trasound correlation recommended. 2. Moderate fecal stasis.
== END | disposition home or self-care (01) ==
LOC: RADCTMAIN 13:39
PROVIDERS: ATTEND Family Medicine
DX: I73.9 Peripheral vascular disease, unspecified (principal); K56.41 Fecal impaction
CPT/HCPCS: 74177; Q9967

== ENCOUNTER → 2023-09-26 | Outpatient (CLI) | payer BC ==
--- NOTE | 2023-09-26 12:45 | US ---
EXAMINATION TYPE: US arterial LE single level DATE OF EXAM: 09/26/2023 10:31 AM CLINICAL INDICATION: Female, 63 years old with history of M79.661 PAIN IN RIGHT LOWER LEG; right leg pain ongoing for 8 years+ History of: Smoker: previous Hypertension: No Diabetic: No Hyperlipidemia: Yes TIA/CVA: No Previous Vascular Surgery: No CAD: No PR: No Vascular Ulcers: No Claudication: No Gangrene: No Doppler Waveforms: Right: Multiphasic Left: Multiphasic Right Brachial Pressure: 169 Left Brachial Pressure: 184 Ankle-Brachial Indices: Right: 1.1 Left: 1.0 Toe Brachial Indices: Right: 0.7 Left: 0.7 IMPRESSION: 1. Mild to moderate narrowing through the arteries to the distal great toes based on the ratios.
== END | disposition home or self-care (01) ==
LOC: RADUSWWP 09:58
PROVIDERS: ATTEND Family Medicine
DX: I70.201 Unspecified atherosclerosis of native arteries of extremities, right leg (principal); M79.661 Pain in right lower leg
CPT/HCPCS: 93922

== ENCOUNTER → 2024-08-30 | Outpatient (CLI) | payer BC ==
--- NOTE | 2024-08-30 08:03 | US ---
EXAMINATION TYPE: US abdomen complete DATE OF EXAM: 08/30/2024 COMPARISON: CT 2022 CLINICAL INDICATION: Female, 64 years old with history of K85.90 ACUTE PANCREATITIS WITHOUT NECROSIS OR INFE; Attention to pancreas. TECHNIQUE: Grayscale and color Doppler imaging of the abdomen was performed. FINDINGS: EXAM MEASUREMENTS: Liver Length: 13.4 cm Gallbladder Wall: 0.2 cm CBD: 0.4 cm Spleen: 8.9 cm Right Kidney: 10.1 x 4.9 x 3.7 cm Left Kidney: 10.1 x 4.7 x 5.5 cm TEMPLATE LAYOUT WORKER NOTES: Exam is limited due to gas. Pancreas: Limited visibility. Portions seen appear wnl. Liver: *Complex area seen in the right lobe: 1.0 x 0.8 x 0.6 cm. Gallbladder: Appears anechoic. Measures 9.2 cm in length. Evidence for sonographic Combs's sign: No CBD: wnl Spleen: Slightly limited, portions seen appear wnl Right Kidney: No hydronephrosis or masses seen Left Kidney: Limited visibility of lower pole. No hydronephrosis or masses seen Upper IVC: wnl Abd Aorta: *Some plaque seen within distal aorta and right iliac artery. IMPRESSION: 1. Complex hepatic lesion measuring 1 cm may reflect small complex cyst. [facility], , 08/30/2024 8:01 AM
== END | disposition home or self-care (01) ==
LOC: RADUSWWP 06:56
PROVIDERS: ATTEND Family Medicine
DX: K85.90 Acute pancreatitis without necrosis or infection, unspecified
CPT/HCPCS: 76700

== ENCOUNTER → 2025-03-13 | Outpatient (CLI) | payer BC ==
[2025-03-13 15:35] LABS: Basophils # (A) 0.03 X 10*3/uL (0.00-0.10); Basophils % (A) 0.8 %; Eosinophils # (A) 0.15 X 10*3/uL (0.04-0.35); Eosinophils % (A) 4.1 %; HCT 41.8 % (37.2-46.3); HGB 13.7 g/dL (12.0-15.0); Lymphocytes # (A) 1.05 X 10*3/uL (0.90-5.00); Lymphocytes % (A) 28.5 %; MCH 31.6 pg (27.0-32.0); MCHC 32.8 g/dL (32.0-37.0); MCV 96.5 FL (80.0-97.0); Mean Platelet Volume 10.5 FL (9.5-12.2); Monocytes # (A) 0.31 X 10*3/uL (0.20-1.00); Monocytes % (A) 8.4 %; NRBC Per 100 WBC 0 X 10*3/uL (0.00-0.01); Neutrophils # (A) 2.13 X 10*3/uL (1.80-7.70); Neutrophils % (A) 57.9 %; Platelet Count 214 X 10*3/uL (140-440); RBC 4.33 X 10*6/uL (4.10-5.20); RDW 11.9 % (11.5-14.5); WBC 3.68 X 10*3/uL (4.50-10.00)
[2025-03-13 15:45] LABS: BUN/Creat Ratio 17.12 Ratio (12.00-20.00); Blood Urea Nitrogen 13.7 mg/dL (9.0-27.0); Chol/HDL Ratio 3.33 Ratio; Glucose 110 mg/dL (70-110); LDL Cholesterol,Calculated 132.8 mg/dL (0.0-131.0)
[2025-03-13 15:46] LABS: ALT 32 U/L (8-44); AST 31 U/L (13-35); Albumin 4.4 g/dL (3.8-4.9); Albumin/Globulin Ratio 1.69 Ratio (1.60-3.17); Alkaline Phosphatase 107 U/L (41-126); Calcium 9.1 mg/dL (8.7-10.3); Carbon Dioxide 23.6 mmol/L (21.6-31.8); Chloride 106 mmol/L (96-109); Globulin 2.6 g/dL (1.6-3.3); Potassium 4.1 mmol/L (3.5-5.5); Sodium 141 mmol/L (135-145); Total Bilirubin <0.2 mg/dL (0.3-1.2)
== END | disposition home or self-care (01) ==
LOC: LABWHC1 09:07
PROVIDERS: ATTEND Family Medicine
DX: E83.10 Disorder of iron metabolism, unspecified (principal); E78.41 Elevated Lipoprotein(a); I70.0 Atherosclerosis of aorta
CPT/HCPCS: 36415; 80053; 80061; 83090; 83695; 84443; 85025